=== PATIENT | female | born 1985 | race Caucasian/White ===

== ENCOUNTER 2017-01-28 10:20 | Emergency (ER) | payer MEDICARE ==
[~2017-01-28] VITALS: Ht 162.6 cm; Wt 96.3 kg
[~2017-01-28 10:20] MED LIST: COLACE100 MG PO; NAPROSYN500 MG PO; TRAMADOL HCL50 MG PO
[2017-01-28 11:21] LABS: ADD MIUA? YES; BILIRUBIN NEGATIVE; BLOOD MODERATE; COLOR YELLOW ((YELLOW)); GLUCOSE (STRIP) NEGATIVE; KETONES NEGATIVE; LEUKOCYTES NEGATIVE; NITRITE NEGATIVE; PROTEIN (STRIP) NEGATIVE; SPECIFIC GRAVITY 1.017 (1.000-1.030); UROBILINOGEN 0.2 MG/DL (0.2-1.0)
[2017-01-28 11:24] LABS: HEMATOCRIT 41.9 % (36.0-46.0); MCHC 33.2 G/DL (30.0-36.0); MCV 84.5 FL (83-99); PLATELET COUNT 295 K/uL (156-360); RBC DIS.WIDTH-CV 12.8 % (11.8-14.6); RBC DIS.WIDTH-SD 38.9 % (39-53); RED BLOOD COUNT 4.96 M/uL (3.80-5.20); WHITE BLOOD COUNT 8.7 K/uL (4.1-10.2)
[2017-01-28 11:38] LABS: CHLORIDE 106 mEq/L (99-109); POTASSIUM 4.1 mEq/L (3.7-5.4); SODIUM 139 mEq/L (136-147)
[2017-01-28 11:41] LABS: GLUCOSE 101 mg/dL (70-99)
[2017-01-28 11:42] LABS: ANION GAP 8 MEQ/L (2-14)
[2017-01-28 11:43] LABS: AMORPHOUS PHOSPHATE CRYSTALS 1+; BACTERIA 1+ /HPF; CRYSTALS PRESENT; EPITHELIAL CELLS 1+ /HPF; MUCUS NONE SEEN /LPF; RED BLOOD CELLS 30-40 /HPF (0-5); UCUL ADDED? NO; WHITE BLOOD CELLS 0-5 /HPF (0-5)
[2017-01-28 11:43] LABS: TOTAL BILIRUBIN 0.4 mg/dL (0.0-1.0)
[2017-01-28 11:44] LABS: ALKALINE PHOSPHATASE 74 IU/L (3-129); GFR ESTIMATE (CALCULATED) > 59 mL/min/
[2017-01-28 11:45] LABS: UREA NITROGEN (BUN) 9 mg/dL (9-23)
[2017-01-28 11:55] LABS: QUANTITATIVE HCG < 4.0 MIU/ML
[2017-01-28] MEDS ORDERED: NAPROSYN500 MG PO (14:22)
[2017-01-28] MEDS ORDERED: ZOFRAN ODT4 MG PO (14:22)
[2017-01-28] MEDS ORDERED: FLOMAX0.4 MG PO (14:22)
[2017-01-28 14:50] VITALS: BP 105/59
== END 2017-01-28 14:50 | disposition home or self-care (01) ==
LOC: EME 10:20
DX: N20.0 Calculus of kidney (principal); R11.0 Nausea; Z87.442 Personal history of urinary calculi; F17.210 Nicotine dependence, cigarettes, uncomplicated
CPT/HCPCS: 74020; 80053; 81003; 84702; 85027; 99281; 99284; J1885

== ENCOUNTER 2017-01-30 17:44 | Observation (INO) | payer BC ==
[~2017-01-30] VITALS: Ht 162.6 cm; Wt 98.2 kg
[~2017-01-30 17:44] MED LIST changes: +FLOMAX0.4 MG PO; +ZOFRAN ODT4 MG PO
[2017-01-30 18:17] LABS: HEMATOCRIT 38.5 % (36.0-46.0); MCH 27.8 PG (29.0-34.0); MCHC 32.7 G/DL (30.0-36.0); MCV 84.8 FL (83-99); MEAN PLAT.VOLUME 9.2 uM^3 (9.5-12.4); PLATELET COUNT 248 K/uL (156-360); RBC DIS.WIDTH-CV 12.7 % (11.8-14.6); RBC DIS.WIDTH-SD 38.5 % (39-53); RED BLOOD COUNT 4.54 M/uL (3.80-5.20); WHITE BLOOD COUNT 12.8 K/uL (4.1-10.2)
[2017-01-30 18:27] LABS: ADD MIUA? YES; BILIRUBIN NEGATIVE; BLOOD SMALL; COLOR STRAW ((YELLOW)); GLUCOSE (STRIP) NEGATIVE; KETONES NEGATIVE; LEUKOCYTES NEGATIVE; NITRITE NEGATIVE; PROTEIN (STRIP) NEGATIVE; SPECIFIC GRAVITY 1.008 (1.000-1.030); UROBILINOGEN 0.2 MG/DL (0.2-1.0)
[2017-01-30 18:27] LABS: CHLORIDE 105 mEq/L (99-109); POTASSIUM 4.5 mEq/L (3.7-5.4); SODIUM 136 mEq/L (136-147)
[2017-01-30 18:28] LABS: GLUCOSE 99 mg/dL (70-99)
[2017-01-30 18:30] LABS: ANION GAP 8 MEQ/L (2-14)
[2017-01-30 18:32] LABS: GFR ESTIMATE (CALCULATED) 43 mL/min/
[2017-01-30 18:32] LABS: BACTERIA RARE /HPF; EPITHELIAL CELLS RARE /HPF; MUCUS TRACE /LPF; RED BLOOD CELLS 0-5 /HPF (0-5); UCUL ADDED? NO; WHITE BLOOD CELLS 0-5 /HPF (0-5)
[2017-01-30 18:33] LABS: UREA NITROGEN (BUN) 14 mg/dL (9-23)
[2017-01-30 19:19] LABS: QUANTITATIVE HCG < 4.0 MIU/ML
[2017-01-30] MEDS ORDERED: TOPIRAMATE50 MG PO (21:01)
[2017-01-30] MEDS ORDERED: EFFEXOR XR75 MG PO (21:01)
[2017-01-30] MEDS ORDERED: PRAVACHOL40 MG PO (21:02)
[2017-01-30] MEDS ORDERED: TRAMADOL PO (21:02)
[2017-01-30 23:41] VITALS: BP 110/66
[2017-01-31 06:26] LABS: EOSINOPHIL COUNT 0.1 K/uL (0-0.3); HEMATOCRIT 35.1 % (36.0-46.0); IMMATURE GRANULOCYTE (%) 0.5 % (0.0-0.7); IMMATURE GRANULOCYTE COUNT 0.1 K/uL; INSTRUMENT ABS NEUTROPHIL CT 8.4 K/uL; LYMPHOCYTE COUNT 1.7 K/uL (1.0-2.8); MCH 28.3 PG (29.0-34.0); MCHC 33.3 G/DL (30.0-36.0); MCV 84.8 FL (83-99); MONOCYTE (%) 7.3 % (3-12); MONOCYTE COUNT 0.8 K/uL (0-0.8); NEUTROPHIL COUNT 8.4 K/uL (1.8-6.4); PLATELET COUNT 203 K/uL (156-360); RBC DIS.WIDTH-CV 12.8 % (11.8-14.6); RBC DIS.WIDTH-SD 39.4 % (39-53); RED BLOOD COUNT 4.14 M/uL (3.80-5.20); WHITE BLOOD COUNT 11.1 K/uL (4.1-10.2)
[2017-01-31 07:13] LABS: ANION GAP 8 MEQ/L (2-14); CHLORIDE 106 MEQ/L (99-109); GFR ESTIMATE (CALCULATED) 43 mL/min/; GLUCOSE 113 mg/dL (70-99); SAMPLE HEMOLYSIS CHECK 0; SAMPLE ICTERIC CHECK 0; SAMPLE LIPEMIA CHECK 0; SODIUM 138 MEQ/L (136-147); UREA NITROGEN (BUN) 12 mg/dL (9-23)
[2017-01-31 09:12] VITALS: BP 127/89
[2017-01-31 12:33] VITALS: BP 130/88
[2017-01-31 15:08] VITALS: BP 121/76
[2017-01-31 16:04] VITALS: BP 132/72
[2017-01-31 19:19] VITALS: BP 129/81
[2017-02-01] VITALS: BP 142/72
[2017-02-01 04:00] VITALS: BP 122/80
[2017-02-01 05:26] LABS: EOSINOPHIL (%) 0.3 % (0-5); HEMATOCRIT 34.7 % (36.0-46.0); IMMATURE GRANULOCYTE (%) 0.5 % (0.0-0.7); IMMATURE GRANULOCYTE COUNT 0.1 K/uL; LYMPHOCYTE COUNT 1.9 K/uL (1.0-2.8); MCH 28.1 PG (29.0-34.0); MCHC 33.1 G/DL (30.0-36.0); MCV 84.8 FL (83-99); MEAN PLAT.VOLUME 9.7 uM^3 (9.5-12.4); MONOCYTE (%) 4.7 % (3-12); MONOCYTE COUNT 0.5 K/uL (0-0.8); PLATELET COUNT 239 K/uL (156-360); RBC DIS.WIDTH-CV 12.8 % (11.8-14.6); RBC DIS.WIDTH-SD 39.4 % (39-53); RED BLOOD COUNT 4.09 M/uL (3.80-5.20); WHITE BLOOD COUNT 10.6 K/uL (4.1-10.2)
[2017-02-01 06:32] LABS: ANION GAP 9 MEQ/L (2-14); CHLORIDE 106 MEQ/L (99-109); GFR ESTIMATE (CALCULATED) > 59 mL/min/; GLUCOSE 114 mg/dL (70-99); POTASSIUM 4.6 MEQ/L (3.7-5.4); SAMPLE HEMOLYSIS CHECK 0; SAMPLE ICTERIC CHECK 0; SAMPLE LIPEMIA CHECK 0; SODIUM 138 MEQ/L (136-147); UREA NITROGEN (BUN) 13 mg/dL (9-23); URIC ACID 5.5 mg/dL (3.1-9.2)
[2017-02-01 07:20] VITALS: BP 118/88
[2017-02-01 07:42] LABS: ADD MIUA? YES; BILIRUBIN NEGATIVE; BLOOD LARGE; COLOR YELLOW ((YELLOW)); GLUCOSE (STRIP) NEGATIVE; KETONES 20; LEUKOCYTES SMALL; NITRITE NEGATIVE; PROTEIN (STRIP) 30; SPECIFIC GRAVITY 1.011 (1.000-1.030); UROBILINOGEN 0.2 MG/DL (0.2-1.0)
[2017-02-01 07:55] LABS: BACTERIA NONE SEEN /HPF; EPITHELIAL CELLS RARE /HPF; MUCUS TRACE /LPF; RED BLOOD CELLS TNTC /HPF (0-5); WHITE BLOOD CELLS 30-40 /HPF (0-5)
[2017-02-01] MEDS ORDERED: NITROFURANTOIN100 M3 PO (09:03)
== END 2017-02-01 10:41 | disposition home or self-care (01) ==
LOC: EME 17:44 → EXP 17:44 → 5WEST 22:22 → EDOF 22:22 → 5WEST 23:37
PROVIDERS: Hospitalist; Internal Medicine Nephrology
PROC: 0T778DZ Dilation of Left Ureter with Intraluminal Device, Via Natural or Artificial Opening Endoscopic (ICD-10-PCS; principal; 2017-01-31)
DX: N13.6 Pyonephrosis (principal); N17.9 Acute kidney failure, unspecified; E78.00 Pure hypercholesterolemia, unspecified; F17.210 Nicotine dependence, cigarettes, uncomplicated
CPT/HCPCS: 74176; 74420; 80048; 80069; 81003; 84550; 84702; 85025; 85027; 99281; 99285; C1876; G0378; J1100; J1200; J1644; J1885; J1956; J2270; J2405; J2765; J3010; J7030

== ENCOUNTER 2017-03-18 09:47 | Day surgery (SDC) | payer BC ==
[~2017-03-18] VITALS: Ht 162.6 cm; Wt 94.8 kg
[~2017-03-18 09:47] MED LIST changes: +CIPRO500 MG PO; +CLARITIN,ALAVAR10 MG PO; +EFFEXOR XR75 MG PO; +NITROFURANTOIN100 M3 PO; +PRAVACHOL40 MG PO; +TOPIRAMATE50 MG PO; +TRAMADOL PO
[2017-03-18 10:49] VITALS: BP 130/58
[2017-03-18 11:22] LABS: METH RESISTANT S AUREUS PCR NEGATIVE (NEGATIVE)
[2017-03-18 11:24] LABS: PROBE CHECK PASS; SPECIMEN PROCESSING CONTROL PASS
[2017-03-18 13:30] VITALS: BP 113/77
[2017-03-18 14:28] VITALS: BP 112/72
[2017-03-18 15:30] VITALS: BP 113/77
[2017-03-18 16:00] VITALS: BP 119/74
== END 2017-03-18 16:20 | disposition home or self-care (01) ==
LOC: SDC 09:47
PROVIDERS: Urology
PROC: 0TJ98ZZ Inspection of Ureter, Via Natural or Artificial Opening Endoscopic (ICD-10-PCS; principal; 2017-03-18)
DX: N20.2 Calculus of kidney with calculus of ureter (principal); F41.8 Other specified anxiety disorders; F17.210 Nicotine dependence, cigarettes, uncomplicated; Z88.0 Allergy status to penicillin; Z87.442 Personal history of urinary calculi
CPT/HCPCS: 74000; 74420; 84702; 87641; J0690; J1100; J1170; J1580; J1885; J2250; J2405; J3010

== ENCOUNTER → 2017-04-07 | Outpatient (CLI) | payer BC | END | disposition home or self-care (01) | LOC: NUC 10:53 | DX: R10.11 Right upper quadrant pain (principal) | CPT/HCPCS: 78227; A9537; J2805 ==

== ENCOUNTER 2017-06-09 09:35 | Emergency (ER) | payer BC ==
[~2017-06-09] VITALS: Ht 162.6 cm; Wt 96.7 kg
[2017-06-09 10:17] LABS: ADD MIUA? NO; BILIRUBIN NEGATIVE; BLOOD NEGATIVE; COLOR YELLOW ((YELLOW)); GLUCOSE (STRIP) NEGATIVE; KETONES NEGATIVE; LEUKOCYTES NEGATIVE; NITRITE NEGATIVE; PROTEIN (STRIP) 30; SPECIFIC GRAVITY 1.026 (1.000-1.030); UROBILINOGEN 0.2 MG/DL (0.2-1.0)
[2017-06-09 10:28] LABS: HEMATOCRIT 39.7 % (36.0-46.0); MCH 28.5 PG (29.0-34.0); MCHC 33.5 G/DL (30.0-36.0); MCV 85.2 FL (83-99); MEAN PLAT.VOLUME 8.7 uM^3 (9.5-12.4); PLATELET COUNT 250 K/uL (156-360); RBC DIS.WIDTH-CV 12.9 % (11.8-14.6); RBC DIS.WIDTH-SD 39.8 % (39-53); RED BLOOD COUNT 4.66 M/uL (3.80-5.20); WHITE BLOOD COUNT 7.5 K/uL (4.1-10.2)
[2017-06-09 10:39] LABS: CHLORIDE 107 mEq/L (99-109); POTASSIUM 4.6 mEq/L (3.7-5.4); SODIUM 136 mEq/L (136-147)
[2017-06-09 10:41] LABS: GLUCOSE 101 mg/dL (70-99)
[2017-06-09 10:42] LABS: ANION GAP 8 MEQ/L (2-14)
[2017-06-09 10:43] LABS: TOTAL BILIRUBIN 0.3 mg/dL (0.0-1.0)
[2017-06-09 10:44] LABS: ALKALINE PHOSPHATASE 69 IU/L (3-129)
[2017-06-09 10:45] LABS: GFR ESTIMATE (CALCULATED) > 59 mL/min/
[2017-06-09 10:46] LABS: UREA NITROGEN (BUN) 8 mg/dL (9-23)
[2017-06-09 10:48] LABS: LIPASE 23 U/L (1.0-51.0)
[2017-06-09] MEDS ORDERED: ZOFRAN ODT4 MG PO (11:10)
[2017-06-09 11:17] VITALS: BP 119/79
== END 2017-06-09 11:27 | disposition home or self-care (01) ==
LOC: EME 09:35
PROVIDERS: Nurse Practitioner Family
DX: O26.891 Other specified pregnancy related conditions, first trimester (principal); M54.5 Low back pain; O99.331 Smoking (tobacco) complicating pregnancy, first trimester; F17.200 Nicotine dependence, unspecified, uncomplicated; Z87.442 Personal history of urinary calculi
CPT/HCPCS: 80053; 81003; 83690; 84702; 85027; 99281; 99283; J1885

== ENCOUNTER 2018-02-01 18:52 | Outpatient (CLI) | payer OTHER ==
[~2018-02-01 18:52] MED LIST changes: +PRENATAL TABLE1 EACH PO; +TAMIFLU75 MG PO; +ZOFRAN ODT8 MG PO
[2018-02-01 18:58] VITALS: BP 119/79
[2018-02-03] MEDS ORDERED: LO-DOSE ASPIRIN81 M1 PO (09:42)
[2018-02-03] MEDS ORDERED: HUMULIN N100 UNITS/ SC (09:42)
[2018-02-03] MEDS ORDERED: FEOSOL325 MG PO (09:43)
[2018-02-03] MEDS ORDERED: ZOFRAN ODT8 MG PO (09:44)
== END 2018-02-01 20:30 | disposition home or self-care (01) ==
LOC: LDRP-OP 18:52 → 2WEST 18:53 → LDRP-OP 03-18 11:12
DX: O36.8130 Decreased fetal movements, third trimester, not applicable or unspecified (principal); Z3A.38 38 weeks gestation of pregnancy
CPT/HCPCS: 59025; G0378

== ENCOUNTER 2018-02-08 05:36 | Inpatient (IN) | payer OTHER ==
[~2018-02-08] VITALS: Ht 162.6 cm; Wt 109.8 kg
[2018-02-08] VITALS (7 sets, daily range): BP systolic 120–135; BP diastolic 68–83
[~2018-02-08 05:36] MED LIST changes: +FEOSOL325 MG PO; +HUMULIN N100 UNITS/ SC; +LO-DOSE ASPIRIN81 M1 PO
[2018-02-08 06:49] LABS: HEMATOCRIT 33.2 % (36.0-46.0); HEMOGLOBIN 10.8 G/DL (11.9-15.5); MCH 28.6 PG (29.0-34.0); MCHC 32.5 G/DL (30.0-36.0); MCV 87.8 FL (83-99); PLATELET COUNT 245 K/uL (156-360); RBC DIS.WIDTH-CV 15.6 % (11.8-14.6); RBC DIS.WIDTH-SD 49.1 % (39-53); RED BLOOD COUNT 3.78 M/uL (3.80-5.20); WHITE BLOOD COUNT 11.1 K/uL (4.1-10.2)
[2018-02-08 07:12] LABS: CHLORIDE 105 MEQ/L (99-109); CREATININE 0.7 MG/DL (0.6-1.3); GFR ESTIMATE (CALCULATED) > 59 mL/min/; GLUCOSE 97 mg/dL (70-99); POTASSIUM 4.2 MEQ/L (3.7-5.4); SODIUM 137 MEQ/L (136-147); UREA NITROGEN (BUN) 12 mg/dL (9-23)
[2018-02-08 07:58] LABS: AMPHETAMINE NEGATIVE (500 ng/mL); BARBITURATES NEGATIVE (200 ng/mL); BENZODIAZEPINES NEGATIVE (150 ng/mL); BUPRENORPHINE NEGATIVE (10 ng/mL); COCAINE NEGATIVE (150 ng/mL); METHADONE NEGATIVE (200 ng/mL); METHAMPHETAMINE NEGATIVE (500 ng/mL); OPIATES (MORPHINE) NEGATIVE (100 ng/mL); OXYCODONE NEGATIVE (100 ng/mL); PHENCYCLIDINE NEGATIVE (25 ng/mL); PROPOXYPHENE NEGATIVE (300 ng/mL); THC CANNABINOIDS NEGATIVE (50 ng/mL); TRICYCLIC ANTIDEPRESSANTS NEGATIVE (300 ng/mL)
[2018-02-08] MEDS ORDERED: ENDOCET 5-3251 EACH PO (08:56)
[2018-02-08] MEDS ORDERED: IBUPROFEN800 MG PO (08:56)
[2018-02-09 02:27] VITALS: BP 129/75
[2018-02-09 06:19] LABS: BASOPHIL (%) 0.4 % (0-1); EOSINOPHIL (%) 0.6 % (0-5); EOSINOPHIL COUNT 0.1 K/uL (0-0.3); HEMATOCRIT 32.5 % (36.0-46.0); HEMOGLOBIN 10.3 G/DL (11.9-15.5); IMMATURE GRANULOCYTE (%) 0.5 % (0.0-0.7); LYMPHOCYTE COUNT 2.2 K/uL (1.0-2.8); MCH 28.1 PG (29.0-34.0); MCHC 31.7 G/DL (30.0-36.0); MCV 88.8 FL (83-99); MONOCYTE COUNT 0.5 K/uL (0-0.8); NEUTROPHIL (%) 73.5 % (45-76); NEUTROPHIL COUNT 7.9 K/uL (1.8-6.4); PLATELET COUNT 228 K/uL (156-360); RBC DIS.WIDTH-CV 15.9 % (11.8-14.6); RBC DIS.WIDTH-SD 51.4 % (39-53); RED BLOOD COUNT 3.66 M/uL (3.80-5.20); WHITE BLOOD COUNT 10.8 K/uL (4.1-10.2)
[2018-02-09 07:26] VITALS: BP 128/86
[2018-02-09 14:34] VITALS: BP 132/70
[2018-02-09 19:53] VITALS: BP 143/88
[2018-02-09 23:13] VITALS: BP 140/92
[2018-02-10 02:09] VITALS: BP 124/78
== END 2018-02-11 15:30 | disposition home or self-care (01) | DRG 766 ==
LOC: 2WEST 05:36 → 2SOUTH 12:20 → 2WEST 02-11 15:30
PROVIDERS: Obstetrics & Gynecology Obstetrics
PROC: 10D00Z1 Extraction of Products of Conception, Low, Open Approach (ICD-10-PCS; principal; 2018-02-08)
DX: O32.1XX0 Maternal care for breech presentation, not applicable or unspecified (principal); O34.211 Maternal care for low transverse scar from previous cesarean delivery; O34.13 Maternal care for benign tumor of corpus uteri, third trimester; D25.2 Subserosal leiomyoma of uterus; J30.2 Other seasonal allergic rhinitis; O99.52 Diseases of the respiratory system complicating childbirth; O24.424 Gestational diabetes mellitus in childbirth, insulin controlled; Z37.0 Single live birth; Z3A.39 39 weeks gestation of pregnancy; Z68.37 Body mass index [BMI] 37.0-37.9, adult; E66.9 Obesity, unspecified; O99.214 Obesity complicating childbirth
CPT/HCPCS: 80048; 80306 90; 82948; 82955 90; 85025; 85027; 86850; 86900; 86901; J0690; J2250; J2274; J2405; J7120